=== PATIENT | female | born 1945 | race Caucasian/White ===

== ENCOUNTER 2016-11-10 09:24 | Emergency (ER) | payer MEDICARE ==
[2016-11-10] MEDS ORDERED: Ipratropium 0.02% Inhal Soln (0.5 mg/2.5 ml) UD IH STA (09:36)
[2016-11-10] MEDS ORDERED: Albuterol-Ipratrop 3 mg / 0.5 (3 ml) UD IH STA (09:52)
--- NOTE | 2016-11-10 09:59 | ED PDOC ---
Arrival/HPI - General Chief Complaint: Shortness Of Breath Time Seen by Provider: 11/10/16 09:30 Historian: Patient - History of Present Illness Narrative History of Present Illness (Text): 11/10/16 10:00 A 71 year old female, whose past medical history includes hypertension, presents to the emergency department complaining of shortness of breath and cough since yesterday. Patient notes productive cough with yellow phlegm, and pain under ribs bilaterally when coughing. Patient denies any abdominal pain, chest pain or any other complaints at this time. Denies any drug or alcohol use. Time/Duration: 24 hours Symptom Onset: Sudden Symptom Course: Unchanged Activities at Onset: Rest Context: Home Past Medical History - Provider Review Nursing Documentation Reviewed: Yes - Infectious Disease Hx of Infectious Diseases: None - Cardiac Hx Hypertension: Yes - Pulmonary Hx Asthma: Yes - Psychiatric Hx Substance Use: No - Surgical History Other/Comment: Left knee replacement. Family/Social History - Physician Review Nursing Documentation Reviewed: Yes Family/Social History: No Known Family HX Smoking Status: Never Smoked Hx Alcohol Use: No Hx Substance Use: No Allergies/Home Meds Allergies/Adverse Reactions: Allergies No Known Allergies Allergy (Verified 11/10/16 09:33) Home Medications: Home Meds Medication Instructions Recorded Confirmed Metoprolol Succinate [Toprol XL] 25 mg PO DAILY 11/10/16 11/10/16 Nebivolol [Bystolic] 10 mg PO DAILY 11/10/16 11/10/16 hydroCHLOROthiazide [Hydrodiuril] 25 mg PO DAILY 11/10/16 11/10/16 Review of Systems - Physician Review All systems were reviewed & negative as marked: Yes - Review of Systems Respiratory: SOB, Cough Cardiovascular: absent: Chest Pain Gastrointestinal: absent: Abdominal Pain Physical Exam Vital Signs Reviewed: Yes Vital Signs Temp Pulse Resp BP Pulse Ox 11/10/16 11:59 98.2 F 78 20 144/85 96 11/10/16 11:44 98.6 F 78 20 144/85 96 11/10/16 11:06 68 18 127/66 100 11/10/16 09:36 18 100 11/10/16 09:35 98.4 F 66 18 133/61 100 Temperature: Afebrile Blood Pressure: Normal Pulse: Regular Respiratory Rate: Normal Appearance: Positive for: Well-Appearing, Non-Toxic, Comfortable Pain Distress: None Mental Status: Positive for: Alert and Oriented X 3 - Systems Exam Head: Present: Atraumatic, Normocephalic Pupils: Present: PERRL Extroacular Muscles: Present: EOMI Conjunctiva: Present: Normal Mouth: Present: Moist Mucous Membranes Neck: Present: Normal Range of Motion Respiratory/Chest: Present: Decreased Breath Sounds. No: Respiratory Distress, Accessory Muscle Use Cardiovascular: Present: Regular Rate and Rhythm, Normal S1, S2. No: Murmurs Abdomen: Present: Normal Bowel Sounds. No: Tenderness, Distention, Peritoneal Signs Back: Present: Normal Inspection Upper Extremity: Present: Normal Inspection. No: Cyanosis, Edema Lower Extremity: Present: Normal Inspection. No: Edema Neurological: Present: GCS=15, CN II-XII Intact, Speech Normal Skin: Present: Warm, Dry, Normal Color. No: Rashes Psychiatric: Present: Alert, Oriented x 3, Normal Insight, Normal Concentration Medical Decision Making ED Course and Treatment: 11/10/16 09:56 Impression: A 71 year old female with shortness of breath and cough. Differential Diagnosis included but are not limited to: asthma exacerbation r/ o pneumonia vs. active airway disease Plan: -- EKG -- chest xray -- labs -- Duoneb -- Reassess and disposition Progress Notes: EKG: Ordered, reviewed, and independently interpreted the EKG. Rate : 65 BPM Rhythm : NSR Interpretation : right bundle branch block Comparison : No previous EKG for comparison. 11/10/16 10:54 chest xray: Creator : Alvarado Jenkins MD IMPRESSION: No active disease. 11/10/16 11:39 Patient currently has no shortness of breath, symptom resolved. troponin ngeative pt states she thinks she may actually have history of ashtma 02 sat normal, pt in no respiratory distress comfortable in bed 11/10/16 12:20 On re-evaluation, patient feels better and is in no acute distress. I have discussed the results and plan with the patient, who expresses understanding. Patient in agreement with plan to be discharged home. Patient is stable for discharge. Patient was instructed to follow up with physician/clinic in 1-2 days or return if symptoms worsen or new concerning symptoms arise. 11/10/16 14:03 - Lab Interpretations Lab Results: 11/10/16 10:10 11/10/16 10:10 Lab Results 11/10/16 10:10: Sodium 141, Potassium 4.0, Chloride 105, Carbon Dioxide 28, Anion Gap 12, BUN 12, Creatinine 0.7, Est GFR ( Amer) > 60, Est GFR (Non- Af Amer) > 60, Random Glucose 84, Calcium 9.3, Total Bilirubin 0.4, AST 32, ALT 28, Alkaline Phosphatase 98, Lactate Dehydrogenase 615, Total Creatine Kinase 299 H, CK-MB (CK-2) 1.8, CK-MB (CK-2) % Cancelled, Troponin I < 0.01, Total Protein 7.8, Albumin 4.2, Globulin 3.6, Albumin/Globulin Ratio 1.2 11/10/16 10:10: WBC 7.8, RBC 4.48, Hgb 12.1, Hct 37.2, MCV 83.0, MCH 27.0, MCHC 32.5, RDW 14.6 H, Plt Count 256, MPV 9.1, Gran % 55.7, Lymph % (Auto) 30.2, [place] % (Auto) 10.7 H, Eos % (Auto) 3.0, Baso % (Auto) 0.4, Gran # 4.34, Lymph # 2.4, [place] # 0.8 H, Eos # 0.2, Baso # 0.03 I have reviewed the lab results: Yes - RAD Interpretation Radiology Orders: 11/10/16 09:52 CHEST TWO VIEWS (PA/LAT) [RAD] Stat - EKG Interpretation Interpreted by ED Physician: Yes Type: 12 lead EKG - Medication Orders Current Medication Orders: Discontinued Medications Albuterol/Ipratropium (Duoneb 3 Mg/0.5 Mg (3 Ml) Ud) 3 ml IH STAT STA Stop: 11/10/16 09:53 Last Admin: 11/10/16 10:11 Dose: 3 ml Ipratropium [place] (Atrovent) 0.5 mg IH STAT STA Stop: 11/10/16 09:37 Last Admin: 11/10/16 09:43 Dose: - Scribe Statement The provider has reviewed the documentation as recorded by the Nettie Suarez Provider Scribe Attestation: All medical record entries made by the Scribe were at my direction and personally dictated by me. I have reviewed the chart and agree that the record accurately reflects my personal performance of the history, physical exam, medical decision making, and the department course for this patient. I have also personally directed, reviewed, and agree with the discharge instructions and disposition. Disposition/Present on Arrival - Present on Arrival Any Indicators Present on Arrival: No History of DVT/PE: No History of Uncontrolled Diabetes: No Urinary Catheter: No History of Decub. Ulcer: No History Surgical Site Infection Following: None - Disposition Have Diagnosis and Disposition been Completed?: Yes Diagnosis: Cough Disposition: HOME/ ROUTINE Disposition Time: 11:00 Patient Plan: Discharge Condition: IMPROVED Discharge Instructions (ExitCare): Cold Symptoms (ED), Acute Cough (ED) Print Language: ZIMBABWEAN Additional Instructions: follow up with your primary doctor in 1-2 days return to the ED with any worsening or concerning symptoms. Prescriptions: Albuterol HFA [Ventolin HFA 90 mcg/actuation (8 g)] 1 - 2 puff IH Q4H PRN #1 bottle PRN Reason: Wheezing Forms: [employer] (Brazilian), [employer] (Lao)
[2016-11-10 10:16] LABS: BASO # 0.03 K/mm3 (0.0-2.0); BASO % 0.4 % (0.0-3.0); EOS # 0.2 (0.0-0.7); GRAN # 4.34 (1.4-6.5); GRAN % 55.7 % (50.0-68.0); HEMATOCRIT 37.2 % (36.0-48.0); LYMPH # 2.4 (1.2-3.4); LYMPH % 30.2 % (22.0-35.0); MEAN CORPUSCULAR HGB CONC 32.5 g/dl (31.0-37.0); MEAN PLATELET VOLUME 9.1 fl (7.0-11.0); MONO # 0.8 (0.1-0.6); MONO % 10.7 % (1.0-6.0); RED CELL DISTRIBUTION WIDTH 14.6 % (11.5-14.5); WHITE BLOOD COUNT 7.8 10^3/ul (4.5-11.0)
[2016-11-10 10:27] LABS: ALB/GLOB RATIO 1.2 (1.1-1.8); ALKALINE PHOSPHATASE 98 U/L (38-126); ALT/SGPT 28 U/L (7-56); AST/SGOT 32 U/L (14-36); BILIRUBIN,TOTAL 0.4 mg/dL (0.2-1.3); BLOOD UREA NITROGEN 12 mg/dL (7-21); CALCIUM 9.3 mg/dL (8.4-10.5); CARBON DIOXIDE 28 mmol/L (21-33); CHLORIDE 105 mmol/L (98-107); GFR AFRICAN-AMERICAN > 60; GLUCOSE,RANDOM 84 mg/dL (70-110); SODIUM 141 mmol/L (132-148); TOTAL PROTEIN 7.8 g/dL (5.8-8.3)
[2016-11-10 10:39] LABS: TROPONIN I < 0.01 ng/mL
--- NOTE | 2016-11-10 10:52 | RAD ---
HISTORY: cough COMPARISON: No prior. TECHNIQUE: Chest PA and lateral FINDINGS: LUNGS: No active pulmonary disease. PLEURA: No significant pleural effusion identified. No pneumothorax apparent. CARDIOVASCULAR: Normal. OSSEOUS STRUCTURES: No significant abnormalities. VISUALIZED UPPER ABDOMEN: Normal. OTHER FINDINGS: None. IMPRESSION: No active disease.
[2016-11-10 11:45] VITALS: BP 144/85; PULSE 78; RESP 20; O2SAT 96
[2016-11-10 12:01] VITALS: TEMP 98.2
--- NOTE | 2016-11-10 13:33 | CARD ---
APPROVED REPORT EKG Measurement Heart [id number] [id number] <Conclusion> Normal sinus rhythm Right bundle branch block Abnormal ECG
== END 2016-11-10 12:01 | disposition home or self-care (01) ==
LOC: ED 09:24
DX: R05 Cough (principal); I10 Essential (primary) hypertension; J45.909 Unspecified asthma, uncomplicated

== ENCOUNTER 2017-08-01 20:48 | Observation (INO) | payer MEDICARE ==
[2017-08-01 21:00] VITALS: BMI 33.5
[2017-08-01] MEDS ORDERED: Albuterol-Ipratrop 3 mg / 0.5 (3 ml) UD IH STA (21:38)
--- NOTE | 2017-08-01 23:00 | ED PDOC ---
Arrival/HPI - General Chief Complaint: Cough, Cold, Congestion Time Seen by Provider: 08/01/17 21:19 Historian: Patient - History of Present Illness Narrative History of Present Illness (Text): 08/01/17 23:02 Patient is a 71 yo female reports past medical history of asthma and seasonal allergies, states that she has had cough intermittently for one week. Since yesterday, she has pain to right side of chest, mostly with coughing. She denies hemoptysis. She denies leg pain or swelling. Denies dyspnea with exertion. She has been using inhaler for cough with minimal improvement. Past Medical History - Infectious Disease Hx of Infectious Diseases: None - Cardiac Hx Hypertension: Yes - Pulmonary Hx Asthma: Yes - Psychiatric Hx Substance Use: No - Surgical History Hx Section: Yes Hx Joint Replacement: Yes Hx Orthopedic Surgery: Yes Other/Comment: Left knee replacement. Family/Social History Smoking Status: Never Smoked Hx Alcohol Use: No Hx Substance Use: No Allergies/Home Meds Allergies/Adverse Reactions: Allergies No Known Allergies Allergy (Verified 08/01/17 20:57) Home Medications: Home Meds Medication Instructions Recorded Confirmed Nebivolol [Bystolic] 10 mg PO DAILY 11/10/16 08/01/17 hydroCHLOROthiazide [Hydrodiuril] 25 mg PO DAILY 11/10/16 08/01/17 Atorvastatin [Lipitor] 10 mg PO DIN 08/01/17 08/01/17 Review of Systems - Review of Systems Constitutional: absent: Fevers Eyes: absent: Vision Changes ENT: absent: Hearing Changes Respiratory: Cough. absent: SOB, Sputum, Wheezing Cardiovascular: Chest Pain. absent: Palpitations, Edema, Calf Pain, EISENEBRG Gastrointestinal: absent: Abdominal Pain, Nausea, Vomiting Genitourinary Female: absent: Dysuria Musculoskeletal: absent: Back Pain Skin: absent: Rash Neurological: absent: Headache, Dizziness, Focal Weakness Endocrine: absent: Polyuria Hemo/Lymphatic: absent: Easy Bleeding Physical Exam Vital Signs Reviewed: Yes Vital Signs Temp Pulse Resp BP Pulse Ox 08/01/17 20:59 98.0 F 71 18 119/79 96 Temperature: Afebrile Appearance: Positive for: Non-Toxic Pain Distress: Mild Mental Status: Positive for: Alert and Oriented X 3 Finger Stick Blood Glucose: 111 - Systems Exam Head: Present: Atraumatic, Normocephalic Pupils: Present: PERRL Extroacular Muscles: Present: EOMI Mouth: Present: Moist Mucous Membranes Pharnyx: No: ERYTHEMA Neck: Present: Normal Range of Motion Respiratory/Chest: Present: Wheezes, Tender to Palpation (right chest wall, no crepitus). No: Respiratory Distress, Accessory Muscle Use Cardiovascular: Present: Regular Rate and Rhythm Abdomen: No: Tenderness Back: No: CVA Tenderness Upper Extremity: No: Cyanosis, Edema Lower Extremity: No: Edema, CALF TENDERNESS Neurological: Present: Motor Func Grossly Intact, Normal Sensory Function Skin: Present: Warm Psychiatric: Present: Alert, Normal Insight, Normal Concentration Medical Decision Making ED Course and Treatment: 08/01/17 23:06 Patient is 71 yo female with cough for several days, chest pain with coughing over past day. She has mild wheezing noted on exam. There is somewhat palpable component to pain although patient has SIGNIFICANT history of coronary artery disease in sister and mother, both have had myocardial infarction in past. EKG reveals nsr with RBBB, which was noted on prior EKGs. Nonsmoker. No recent travel. No hx of prolonged immobilzation. NO hypoxia noted. NO oral contraceptive use. As pain for over one day, will obtain cardiac isos, cxr, labs. No pleuritic pain currently. Nebulizer ordered. On re-exam, lungs clear. EKG unchanged. Troponin unremarkable. CXR reveals cardiomegaly ? right lower lobe infiltrate vs. pulmonary vascular congestion. Will admit for iv antibiotics, cardiac evaluation. - Lab Interpretations Lab Results: 08/01/17 22:50 08/01/17 22:50 Lab Results 08/01/17 22:50: Sodium 144, Potassium 3.8, Chloride 103, Carbon Dioxide 29, Anion Gap 15, BUN 15, Creatinine 0.7, Est GFR ( Amer) > 60, Est GFR (Non- Af Amer) > 60, Random Glucose 115 H, Calcium 9.1, Total Bilirubin 0.3, AST 24, ALT 33, Alkaline Phosphatase 82, Lactate Dehydrogenase 524, Total Creatine Kinase 230, CK-MB (CK-2) 2.1, CK-MB (CK-2) % Cancelled, Troponin I < 0.01, Total Protein 7.1, Albumin 3.8, Globulin 3.3, Albumin/Globulin Ratio 1.2 08/01/17 22:50: PT 12.4, INR 1.09 H, APTT 28.0 08/01/17 22:50: WBC 8.9, RBC 4.26, Hgb 11.3 L, Hct 34.7 L, MCV 81.5, MCH 26.5, MCHC 32.6, RDW 15.0 H, Plt Count 247, MPV 9.3, Gran % 54.6, Lymph % (Auto) 33.2 , [place] % (Auto) 10.7 H, Eos % (Auto) 1.2 L, Baso % (Auto) 0.3, Gran # 4.82, Lymph # (Auto) 2.9, [place] # (Auto) 1.0 H, Eos # (Auto) 0.1, Baso # (Auto) 0.03 08/01/17 22:46: POC Glucose (mg/dL) 111 H - RAD Interpretation Radiology Orders: 08/01/17 21:37 CHEST TWO VIEWS (PA/LAT) [RAD] Stat - EKG Interpretation EKG Interpretation (Text): 08/01/17 23:05 EKG at 2153 normal sinus rhythm rate of 71 with right bundle branch block Interpreted by ED Physician: Yes Type: 12 lead EKG - Medication Orders Current Medication Orders: Discontinued Medications Albuterol/Ipratropium (Duoneb 3 Mg/0.5 Mg (3 Ml) Ud) 3 ml IH STAT STA Stop: 08/01/17 21:39 Disposition/Present on Arrival - Present on Arrival Any Indicators Present on Arrival: No History of DVT/PE: No History of Uncontrolled Diabetes: No Urinary Catheter: No History of Decub. Ulcer: No History Surgical Site Infection Following: None - Disposition Have Diagnosis and Disposition been Completed?: Yes Diagnosis: Chest pain, Pneumonia Disposition: HOSPITALIZED Disposition Time: 23:00 Patient Plan: Admission, Telemetry Patient Problems: Current Active Problems Problem Status Onset Cough Acute Wheezing Acute Condition: FAIR Discharge Instructions (ExitCare): Chest Pain (ED) Referrals: Harrison Cordoba MD [Primary Care Provider] - Follow up with primary Forms: [employer] (Chinese)
[2017-08-01 23:06] LABS: BASO # 0.03 K/mm3 (0.0-2.0); BASO % 0.3 % (0.0-3.0); EOS # 0.1 (0.0-0.7); EOS % 1.2 % (1.5-5.0); GRAN # 4.82 (1.4-6.5); GRAN % 54.6 % (50.0-68.0); HEMOGLOBIN 11.3 g/dL (12.0-16.0); LYMPH # 2.9 (1.2-3.4); LYMPH % 33.2 % (22.0-35.0); MEAN CELL VOLUME 81.5 fl (80.0-105.0); MEAN CORPUSCULAR HEMOGLOBIN 26.5 pg (25.0-35.0); MEAN CORPUSCULAR HGB CONC 32.6 g/dl (31.0-37.0); MEAN PLATELET VOLUME 9.3 fl (7.0-11.0); MONO % 10.7 % (1.0-6.0); RBC 4.26 10^6/uL (3.5-6.1); WHITE BLOOD COUNT 8.9 10^3/ul (4.5-11.0)
[2017-08-01 23:14] LABS: ALB/GLOB RATIO 1.2 (1.1-1.8); ALBUMIN 3.8 g/dL (3.0-4.8); ALT/SGPT 33 U/L (7-56); AST/SGOT 24 U/L (14-36); BLOOD UREA NITROGEN 15 mg/dL (7-21); CALCIUM 9.1 mg/dL (8.4-10.5); GFR AFRICAN-AMERICAN > 60; GFR NON-AFRICAN AMERICAN > 60
[2017-08-01 23:15] LABS: INR 1.09 (0.93-1.08); PROTHROMBIN TIME 12.4 SECONDS (9.4-12.5)
[2017-08-01 23:25] LABS: TROPONIN I < 0.01 ng/mL
[2017-08-01 23:31] LABS: CK-MB 2.1 ng/mL (0.0-3.6)
[2017-08-01] MEDS ORDERED: cefTRIAXone 1 gm 1 GM/100 ML BAG IVPB STA (23:37)
[2017-08-01] MEDS ORDERED: Azithromycin 500MG/NS 250ml 500 MG/250 ML BAG IVPB STA (23:37)
[2017-08-02 06:20] VITALS: O2SAT 94
[2017-08-02] MEDS: Albuterol-Ipratrop 3 mg / 0.5 (3 ml) UD IH SCH ×2 (08:00→13:54)
[2017-08-02] MEDS ORDERED: NEBIVOLOL 10 MG PO SCH (10:00)
[2017-08-02] MEDS ORDERED: cefTRIAXone 1 gm 1 GM/100 ML BAG IVPB SCH (10:00)
[2017-08-02] MEDS ORDERED: Azithromycin 500MG/NS 250ml 500 MG/250 ML BAG IVPB SCH (10:00)
--- NOTE | 2017-08-02 11:02 | RAD ---
HISTORY: cough, right sided chest pain COMPARISON: No prior. TECHNIQUE: Chest PA and lateral FINDINGS: LUNGS: No active pulmonary disease. PLEURA: No significant pleural effusion identified. No pneumothorax apparent. CARDIOVASCULAR: Mild cardiomegaly and mild vascular congestion OSSEOUS STRUCTURES: No significant abnormalities. VISUALIZED UPPER ABDOMEN: Normal. OTHER FINDINGS: None. IMPRESSION: Mild vascular congestion
[2017-08-02 12:11] VITALS: BP 134/77; PULSE 74; RESP 18; TEMP 98.3
--- NOTE | 2017-08-02 16:00 | CON ---
DATE: 08/02/2017 CARDIOLOGY CONSULTATION HISTORY: The patient is a 71-year-old woman who presents with a cough with a history of bronchospasm. During her cough, she experienced some chest discomfort. The patient was admitted to rule out acute coronary syndrome. PAST MEDICAL HISTORY: Notable for hypertension and hyperlipidemia. No previous cardiac history noted. SOCIAL HISTORY: The patient denies smoking. FAMILY HISTORY: Positive for history of coronary disease in a sister as well as the mother. REVIEW OF SYSTEMS: A 14-point review of systems is reviewed in detail. No cardiac symptomatology is noted. PHYSICAL EXAMINATION: VITAL SIGNS: Blood pressure is 111/66, heart rate is in the 60s, normal sinus rhythm. NECK: Negative JVD. LUNGS: Without rales, negative wheezing. HEART: Reveals S1, S2. EXTREMITIES: Without edema. EKG shows normal sinus rhythm with a right bundle-branch block. LABORATORY DATA: Troponin's are negative x2. Hemoglobin is 11.3. IMPRESSION: 1. Pleuritic-like chest pain with cough. 2. Bronchospasm. 3. No evidence for acute coronary syndrome. 4. Hypertension. 5. Hyperlipidemia. 6. Obesity. 7. Strong family history for coronary artery disease. Given these findings, there is no evidence for acute coronary syndrome. The patient can be discharged from a cardiac perspective. We will do an outpatient stress test given her cardiac risk factors. Eulalio Khan MD
--- NOTE | 2017-08-02 16:52 | CARD ---
APPROVED REPORT EKG Measurement Heart [id number] CT [id number] [id number] <Conclusion> Normal sinus rhythm Right bundle branch block Minimal voltage criteria for LVH, may be normal variant Abnormal ECG
--- NOTE | 2017-08-02 18:41 | HP ---
HISTORY OF PRESENT ILLNESS: She came to the emergency room with a history of having cough intermittently for one week; right-sided chest pain, mostly from the coughing. No bloody sputum. No leg pain or swelling. She is a 71-year-old -[place] female with history of asthma and seasonal allergies presented with a cough and right-sided chest pain. She has hypertension and asthma. She had and joint replacement surgery, left knee replacement. She never smoked. No alcohol. No drugs. ALLERGIES: NO KNOWN DRUG ALLERGIES. MEDICATIONS: She takes Bystolic, HydroDIURIL, Lipitor. REVIEW OF SYSTEMS: No fevers. No vision changes or hearing changes. There is cough. No sputum. No shortness of breath. No wheezing. There is chest pain on the right side. No palpitations or edema. She has no abdominal pain, nausea, vomiting. No problems urinating. No back pain. No skin rashes. No headaches or dizziness or focal weakness. No problems urinating. No easy bleeding. PHYSICAL EXAMINATION: VITAL SIGNS: She has a 98 temperature, 71 pulse, 18 respiratory rate, 119/79 blood pressure, 96% O2 sat on room air. GENERAL: She is alert and oriented x3. She is comfortable in bed. No acute distress. HEENT: Head is atraumatic, normocephalic. Extraocular muscles are intact. Pupils are reactive to light. Throat is moist. NECK: Supple. HEART: Regular rate. LUNGS: Decreased breath sounds, but clear to auscultation an for the most part, very clear. No wheezing or rhonchi appreciated. ABDOMEN: Soft, nontender. Positive bowel sounds. Obese. No CVA tenderness. EXTREMITIES: With no edema. NEUROLOGICAL: Grossly, motor function is intact. Cranial nerves II-XII grossly intact. She is comfortable. She is alert and oriented x3. Thyroid midline. No palpable appreciable lymphadenopathy. SKIN: Warm. No apparent rashes or ulcers appreciated. DATA: She had multiple tests. She had a chest x-ray. She has a very large heart. Awaiting for the reading from the Radiology, they have not done that yet. She has 8.9 white count, 11.3 hemoglobin, 34.7 hematocrit with 247 platelets. She has a 1.09 INR. She has a 144 sodium, potassium is 3.8, BUN 15, creatinine 0.7. GFR is greater than 60, sugar is 115, calcium is 9.1, total bili is 0.3, AST is 24, ALT is 33, alkaline phosphatase 82. Lactate dehydrogenase is 524. Total creatine kinase is 230. Troponin I is less than 0.01. BNP is 33.5, total protein is 7.1. She came in last night at 11:30 and she is in observation status; apparently, they put her in as an inpatient. She is on azithromycin and Rocephin just in case there might be pneumonia behind the large heart, although clinically she does not appear that way. She is on aspirin, DuoNeb, HydroDIURIL, Lipitor and Bystolic. She has a consult with Pulmonary and Cardiology. I am hoping if everything is okay this afternoon, we can discharge her and change her back to an observation. She is comfortable. No acute distress. No more cough. No more right chest pain and she is much improved. This is a patient who came in with a cough and right-sided chest pain. I am waiting for chest x-ray to be read. Pulmonary and Cardio to see her. Next troponins have come back and we will see if we can discharge her this afternoon and change it to an observation. Naseem Hillman DO MTDYu
--- NOTE | 2017-08-02 20:50 | CON ---
DATE: 08/02/2017 PULMONARY CONSULTATION We were asked by Dr. Hillman, cane weigher, to evaluate and treat this 71-year-old woman who was admitted to [facility] with chief complaint of shortness of breath and cough. The patient was started on intravenous antibiotics, azithromycin, and ceftriaxone as well as nebulized DuoNeb. With this treatment, her condition started to improve. HISTORY OF PRESENT ILLNESS: A 71 years old with past history of bronchial asthma and seasonal allergies, started coughing one week prior to admission. She had chest pain on the right side of her chest with deep inspiration and coughing. She denied hemoptysis, denied fever. She went to ER due to shortness of breath and chest pain. PAST MEDICAL HISTORY: As above, history of bronchial asthma, no other pulmonary diseases. She has a history of hypertension, on Bystolic and hydrochlorothiazide as well as hyperlipidemia, on atorvastatin. ALLERGIES: NO KNOWN ALLERGIES. FAMILY HISTORY: Negative for inherited diseases. SOCIAL HISTORY: She is a nonsmoker, nondrinker, never used illicit drugs. REVIEW OF SYSTEMS: Conducted by reviewing all sources. CONSTITUTIONAL: No fevers. EYES, EARS, NOSE, AND THROAT: Negative. RESPIRATORY: See history of present illness. CARDIOVASCULAR: Non-cardiac chest pain with inspiration and movement on the right side. GI: No history of nausea, vomiting, or diarrhea. : No dysuria or hematuria. SKIN: No new skin rash. PHYSICAL EXAMINATION: GENERAL: She is awake, alert, in no acute distress. HEAD, EARS, NOSE AND THROAT: Within normal limits. NECK: Supple with no jugular vein distentions. CARDIOVASCULAR: S1 and S2. No S3. Regular. PULMONARY: Few scattered wheezes. No rales, no rhonchi. Mild airway obstruction. GI: Soft, nontender. No organomegaly. EXTREMITIES: No pedal edema. SKIN: Clear with no skin rashes, no cyanosis. NEUROLOGIC: No focal deficits. In the emergency room, the patient had an electrocardiogram which revealed normal sinus rhythm and right bundle-branch block. The patient states on today's examination that her pain is basically gone. Her EKG on today's exam is unchanged. Cardiac troponin's are negative. Chest x-ray reveals cardiomegaly and is suspicious for right lower lobe infiltrate. LABORATORY DATA: WBC is 8.9, hemoglobin 11.3, platelet count 247,000. The rest of the laboratory data is essentially unremarkable. ASSESSMENT: 1. Chest pain, rule out coronary artery disease. 2. Exacerbation of bronchial asthma. 3. Rule out right lower lobe pneumonia. The x-rays have very poor quality. There is no obvious infiltrate in the right lower lobe and I doubt pneumonia in this case. The patient should have repeat x-ray versus CT scan of her chest and cardiac evaluation due to marked cardiomegaly on chest x-ray. I compared her chest x-ray to a year ago, which was normal and the heart was not enlarged, so I wonder if this is technically so poor, should be repeated. I agree with current choice of antibiotics and nebulizer treatment. Fahad White MD
== END 2017-08-02 14:41 | disposition home or self-care (01) ==
LOC: ED 20:48 → ERH 08-02 01:16 → 2RSO 08-02 02:29
PROVIDERS: ADMIT Family Medicine; ATTEND Family Medicine
DX: J45.901 Unspecified asthma with (acute) exacerbation (principal); I11.9 Hypertensive heart disease without heart failure; E78.5 Hyperlipidemia, unspecified; E66.9 Obesity, unspecified; Z82.49 Family history of ischemic heart disease and other diseases of the circulatory system; Z96.652 Presence of left artificial knee joint; Z68.36 Body mass index [BMI] 36.0-36.9, adult
CPT/HCPCS: 71046; 80053; 82550; 82553; 82948; 83615; 83880; 84484; 85025; 85610; 85730; 87040; 87086; 93005; 99285; G0378; J0456; J0696

== ENCOUNTER 2017-11-25 15:53 | Emergency (ER) | payer MEDICARE ==
[2017-11-25 15:53] VITALS: BMI 35.4
[2017-11-25 16:04] VITALS: RESP 18; TEMP 98
[2017-11-25] MEDS ORDERED: Lidocaine 1% 5ml Abboject ONE (16:37)
[2017-11-25] MEDS ORDERED: Lidocaine 1% Inj (20ml) IJ STA (16:46)
[2017-11-25] MEDS ORDERED: Naproxen 550 mg Tab PO STA (16:52)
[2017-11-25] MEDS ORDERED: Tmp-Smz 800 mg-160 mg DS Tab PO STA (16:52)
--- NOTE | 2017-11-25 16:57 | ED PDOC ---
Arrival/HPI - General Chief Complaint: Abnormal Skin Integrity Time Seen by Provider: 11/25/17 16:30 Historian: Patient - History of Present Illness Narrative History of Present Illness (Text): 11/25/17 16:53 72 yo F c/o painful red, swollen mass to the lateral L elbow. Reports no trauma , injury, fever, chills, numbness or decrease in ROM. Has no other complaints. Past Medical History - Infectious Disease Hx of Infectious Diseases: None - Cardiac Hx Hypertension: Yes - Pulmonary Hx Asthma: Yes - Neurological Hx Neurological Disorder: No - HEENT Hx HEENT Disorder: No - Renal Hx Renal Disorder: No Hx Dialysis: No - Endocrine/Metabolic Hx Endocrine Disorders: No - Hematological/Oncological Hx Blood Disorders: No - Integumentary Hx Dermatological Disorder: No - Musculoskeletal/Rheumatological Hx Degenerative Joint Disease: Yes Hx Falls: No - Gastrointestinal Hx Gastrointestinal Disorders: No - Genitourinary/Gynecological Hx Genitourinary Disorders: No - Psychiatric Hx Psychophysiologic Disorder: No Hx Substance Use: No - Surgical History Hx Section: Yes Hx Joint Replacement: Yes Hx Orthopedic Surgery: Yes Other/Comment: Left knee replacement. Family/Social History Family/Social History: No Known Family HX Smoking Status: Never Smoked Hx Alcohol Use: No Hx Substance Use: No Allergies/Home Meds Allergies/Adverse Reactions: Allergies No Known Allergies Allergy (Verified 11/25/17 16:04) Home Medications: Home Meds Medication Instructions Recorded Confirmed hydroCHLOROthiazide [Hydrodiuril] 25 mg PO DAILY 11/10/16 11/25/17 Atorvastatin [Lipitor] 10 mg PO DIN 08/01/17 11/25/17 Esomeprazole Magnesium [Nexium] 40 mg PO DAILY 11/25/17 11/25/17 Fluticasone/Umeclidin/Vilanter 1 puff NEB DAILY 11/25/17 11/25/17 [Trelegy Ellipta 100-62.5-25] Metoprolol Tartrate [Lopressor] 50 mg PO BID 11/25/17 11/25/17 Review of Systems - Review of Systems Constitutional: absent: Fatigue, Fevers Musculoskeletal: absent: Arthralgias, Back Pain, Neck Pain, Joint Swelling Skin: Abscess. absent: Rash, Pruritis Physical Exam Vital Signs Temp Pulse Resp BP Pulse Ox 11/25/17 16:01 98 F 81 18 124/73 97 Temperature: Afebrile Blood Pressure: Normal Pulse: Regular Respiratory Rate: Normal Appearance: Positive for: Well-Appearing, Non-Toxic, Comfortable Pain Distress: None Mental Status: Positive for: Alert and Oriented X 3 - Systems Exam Upper Extremity: Present: Normal ROM, NORMAL PULSES, Neurovascularly Intact, Capillary Refill < 2s, Norm 2-Pt Discrimination, Other (L elbow : +erythematous , tender, swollen abscess with slight fluctuance to the lateral aspect of the L elbow, FROM. ). No: Temperature Abnormalties Neurological: Present: GCS=15, CN II-XII Intact, Speech Normal, Motor Func Grossly Intact, Normal Sensory Function Skin: Present: Warm, Dry, Normal Color. No: Rashes Psychiatric: Present: Alert, Oriented x 3, Normal Insight, Normal Concentration Medical Decision Making ED Course and Treatment: 11/25/17 16:55 Plan : - I&D - Keflex po - Bactrim po - Naprosyn po Advised to follow up with primary care physician in 1-2 days without fail. Advised to take medication as prescribed. Return to the emergency room at any time for any new or worsening symptoms. Patient states she fully agrees with and understands discharge instructions. States that she agrees with the plan and disposition. Verbalized and repeated discharge instructions and plan. I have given the patient opportunity to ask any additional questions. - Medication Orders Current Medication Orders: Discontinued Medications Cephalexin Monohydrate (Keflex) 500 mg PO STAT STA PRN Reason: Protocol Stop: 11/25/17 16:53 Last Admin: 11/25/17 17:14 Dose: 500 mg Lidocaine HCl (Lidocaine 1% (20ml)) 5 ml IJ STAT STA Stop: 11/25/17 16:47 Last Admin: 11/25/17 17:14 Dose: 5 ml Naproxen (Anaprox Ds) 550 mg PO ONCE STA Stop: 11/25/17 16:53 Last Admin: 11/25/17 17:14 Dose: 550 mg Trimethoprim/Sulfamethoxazole (Bactrim Ds Tab) 2 tab PO STAT STA PRN Reason: Protocol Stop: 11/25/17 16:53 Last Admin: 11/25/17 17:14 Dose: 2 tab Procedures - Incision and Drainage Site: lateral L elbow Blade Size: 11 I & D Procedure: betadine prep, sterile drapes applied, sterile dressing applied Progress: Prior to procedure "time out" was called in order to confirm the correct patient and procedure. Through aseptic technique, local anesthesia was administered to abscess, incision and drainage of abscess was performed by PA which produced purulent material. Wound packing was inserted to the wound. Clean dressing was applied. - PA / [employer] / Resident Statement / has reviewed & agrees with the documentation as recorded. Disposition/Present on Arrival - Present on Arrival Any Indicators Present on Arrival: No History of DVT/PE: No History of Uncontrolled Diabetes: No Urinary Catheter: No History of Decub. Ulcer: No History Surgical Site Infection Following: None - Disposition Have Diagnosis and Disposition been Completed?: Yes Diagnosis: Abscess Disposition: HOME/ ROUTINE Disposition Time: 17:00 Patient Plan: Discharge Patient Problems: Current Active Problems Problem Status Onset Abscess Acute Condition: STABLE Discharge Instructions (ExitCare): Abscess Incision and Drainage Additional Instructions: Thank you for letting us take care of you today. You were treated for abscess. The emergency medical care you received today was directed at your acute symptoms. If you were prescribed any medication, please fill it and take as directed. It may take several days for your symptoms to resolve. Return to the Emergency Department if your symptoms worsen, do not improve, or if you have any other problems. Please contact your doctor in 2 days for re-evaluation and follow up and have wound packing removed. Bring any paperwork you were given at discharge with you along with any medications you are taking to your follow up visit. Our treatment cannot replace ongoing medical care by a primary care provider (PCP) outside of the emergency department. Thank you for allowing the [facility] team to be part of your care today. Prescriptions: Acetaminophen [Tylenol] 650 mg PO Q4H PRN #30 capsule PRN Reason: Pain, Moderate (4-7) Cephalexin [Keflex] 500 mg PO Q6 #28 capsule Sulfamethoxazole/Trimethoprim [Bactrim DS 800 mg-160 mg] 2 tab PO BID #28 tab Referrals: Naseem Hillman DO [Primary Care Provider] - Follow up with primary Forms: [employer] ([place])
[2017-11-25 17:38] VITALS: BP 125/76; PULSE 78; O2SAT 98
== END 2017-11-25 17:37 | disposition home or self-care (01) ==
LOC: ED 15:53
DX: L02.414 Cutaneous abscess of left upper limb (principal); I10 Essential (primary) hypertension

== ENCOUNTER 2018-04-19 12:31 | Outpatient (CLI) | payer MEDICARE | END 2018-04-19 12:32 | disposition home or self-care (01) | LOC: RAD 12:31 | DX: R22.0 Localized swelling, mass and lump, head (principal); R22.1 Localized swelling, mass and lump, neck; M25.422 Effusion, left elbow ==